=== PATIENT | male | born 1945 | race African-American/Black ===

== ENCOUNTER → 2016-08-03 | Outpatient (CLI) | payer OTHER, BC ==
[~2016-08-03] MED LIST: ACETAMINOPHEN325 M1 PO; ALDACTONE25 MG PO; ASPIR 8181 MG PO; ASPIRIN EC325 M1 PO; ATORVASTATIN CA40 MG PO; CARVEDILOL3.125 MG PO; CARVEDILOL6.25 MG PO; CENTRUM SILVER1 EAC2 PO; COQ-10100 MG PO; COZAAR 25 MG TA25 M2 PO; EFFIENT10 MG PO; GLUCOPHAGE XR500 MG PO; GLUCOPHAGE500 MG PO; IMDUR 30 MG TAB30 M1 PO; ISOSORBIDE MONO30 M1 PO; K-DUR 20 MEQ T20 MEQ PO; KLOR-CON 1010 MEQ PO; LASIX 40 MG TAB40 M1 PO; LOPRESSOR 50 MG50 M1 PO; MEXILETINE 150150 MG PO; NITROGLYCERIN0.4 MG SUBLING; OMEPRAZOLE 20 M20 M1 PO; PACERONE 200 M200 M1 PO; PANTOPRAZOLE SO40 M1 PO; PRILOSEC20 MG PO; TAMSULOSIN HCL0.4 M1 PO; TOPROL XL50 MG PO; TRAMADOL 50 MG50 MG PO
== END ==
LOC: RAD 14:36
DX: I48.91 Unspecified atrial fibrillation (principal)

== ENCOUNTER → 2018-02-08 | Outpatient (CLI) | payer OTHER, BC ==
[2018-02-08 13:29] LABS: ALBUMIN 4.4 g/dL (3.4-5.0); DIRECT BILIRUBIN 0.2 mg/dL (<0.1-0.3); TOTAL BILIRUBIN 0.9 mg/dL (<0.1-1.0); TOTAL PROTEIN 8.5 g/dL (6.4-8.2)
== END ==
LOC: RAD 12:25
PROVIDERS: Internal Medicine
DX: I51.7 Cardiomegaly (principal); Z79.899 Other long term (current) drug therapy

== ENCOUNTER → 2018-05-27 | Outpatient (CLI) | payer OTHER, BC | LOC: RAD 12:13 | DX: R05 Cough (principal); Z79.899 Other long term (current) drug therapy ==

== ENCOUNTER 2018-08-17 15:05 | Emergency (ER) | payer OTHER, BC ==
[~2018-08-17] VITALS: Ht 172.7 cm; Wt 102.5 kg
[2018-08-17 16:37] LABS: HEMATOCRIT 38.9 % (42.0-52.0); HEMOGLOBIN 13.2 gm/dL (14.0-18.0); MCH 29.2 pg (26.0-34.0); MCHC 34.1 g/dL (28.0-37.0); MCV 85.5 fL (80.0-100.0); PLATELET COUNT 192 thou/uL (150-400); RBC 4.54 mil/uL (4.50-6.00); WBC 9.7 thou/uL (4.0-11.0)
[2018-08-17 16:51] LABS: ANION GAP 10 mmol/L (7-16); BUN 43 mg/dL (7-18); CALCIUM 10.6 mg/dL (8.5-10.1); CHLORIDE 95 mmol/L (98-107); CO2 35 mmol/L (21-32); CREATININE 1.9 mg/dL (0.7-1.3); GLUCOSE 145 mg/dL (74-106); POTASSIUM 3.7 mmol/L (3.5-5.1); SODIUM 140 mmol/L (136-145)
[2018-08-17 16:59] LABS: TROPONIN-I <0.06 ng/mL (<0.06)
[2018-08-17 17:01] LABS: ABSOLUTE NEUTROPHILS 6.7 thou/uL (1.4-8.2)
[2018-08-17 17:02] LABS: ANISOCYTOSIS 2+; POLYCHROMASIA OCCASIONAL
[2018-08-17 17:34] LABS: ALBUMIN 4.3 g/dL (3.4-5.0); DIRECT BILIRUBIN 0.2 mg/dL (<0.1-0.3); TOTAL BILIRUBIN 0.8 mg/dL (<0.1-1.0); TOTAL PROTEIN 7.9 g/dL (6.4-8.2)
[2018-08-17 18:18] VITALS: BP 118/69
--- NOTE | 2018-08-18 07:16 | EKG ---
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: : 1945 Requested By: Oleg Bruce Order Number: [id number] MD: Francisco J Wade Measurements Intervals [place] Rate: 67 P: 43 WY: 218 QRS: -34 QRSD: 112 T: 56 QT: 547 QTc: 578 Interpretive Statements Sinus rhythm Borderline prolonged [place] interval Poor R wave progression Inferior myocardial infarction, indeterminate age Prolonged QT interval Compared to ECG 05/29/2014 20:32:05 Inferior Q waves are now present Atrial-paced complex(es) or rhythm no longer present nonspecific change in the ST and T-wave segments Electronically Signed On 08-18-2018 7:16:41 CDT by Francisco J Wade [email or web address] ��������������������������������������������� <ELECTRONICALLY SIGNED> ���������������������������������������� By: Francisco J Wade MD, [facility] ��������������������������������������������� 08/18/18 0716 1603 1603 Francisco J Wade MD, [facility] /EPI
== END 2018-08-17 20:10 | disposition home or self-care (01) ==
LOC: ER 15:05
PROVIDERS: Emergency Medicine
DX: M25.511 Pain in right shoulder (principal); E11.9 Type 2 diabetes mellitus without complications; I25.10 Atherosclerotic heart disease of native coronary artery without angina pectoris; I11.0 Hypertensive heart disease with heart failure; I50.9 Heart failure, unspecified; E78.00 Pure hypercholesterolemia, unspecified

== ENCOUNTER → 2019-02-13 | Outpatient (CLI) | payer OTHER, BC | LOC: RAD 15:03 | DX: Z79.899 Other long term (current) drug therapy (principal) ==

== ENCOUNTER → 2019-08-21 | Outpatient (CLI) | payer OTHER, BC | LOC: RAD 15:51 | DX: I50.22 Chronic systolic (congestive) heart failure (principal) ==

== ENCOUNTER → 2019-12-27 | Outpatient (CLI) | payer OTHER, BC ==
[~2019-12-27] MED LIST changes: +ALLEGRA ALLERG180 MG PO; +ALLOPURINOL 10100 M1 PO; -ATORVASTATIN CA40 MG PO; +CARVEDILOL12.5 MG PO; -CARVEDILOL6.25 MG PO; +FLOVENT HFA 4444 MCG INH; +LIPITOR40 MG PO; +METOLAZONE 2.52.5 MG PO; +TRICOR48 MG PO
== END ==
LOC: SJCVC 13:34
PROVIDERS: ATTEND Internal Medicine Cardiovascular Disease
DX: R94.31 Abnormal electrocardiogram [ECG] [EKG] (principal); I25.5 Ischemic cardiomyopathy; I25.10 Atherosclerotic heart disease of native coronary artery without angina pectoris; E78.5 Hyperlipidemia, unspecified; I11.0 Hypertensive heart disease with heart failure; I50.22 Chronic systolic (congestive) heart failure; I25.2 Old myocardial infarction; Z82.49 Family history of ischemic heart disease and other diseases of the circulatory system; Z79.899 Other long term (current) drug therapy

== ENCOUNTER → 2020-02-26 | Outpatient (CLI) | payer OTHER, BC | LOC: RAD 13:49 | PROVIDERS: ATTEND Internal Medicine Cardiovascular Disease | DX: J98.4 Other disorders of lung (principal); Z79.899 Other long term (current) drug therapy ==

== ENCOUNTER → 2020-09-26 | Outpatient (CLI) | payer OTHER, BC ==
[~2020-09-26] MED LIST changes: +COENZYME Q10100 M2 PO; +MITIGARE0.6 MG PO; +PRILOSEC OTC20 MG PO; -PRILOSEC20 MG PO
== END ==
LOC: RAD 15:15
PROVIDERS: ATTEND Internal Medicine Cardiovascular Disease
DX: I25.5 Ischemic cardiomyopathy (principal); Z79.899 Other long term (current) drug therapy; I10 Essential (primary) hypertension

== ENCOUNTER 2020-11-08 21:16 | Inpatient (IN) | payer OTHER, BC ==
[~2020-11-08] VITALS: Ht 172.7 cm; Wt 118.8 kg
[2020-11-08 21:19] VITALS: BP 111/79
[2020-11-08 22:12] LABS: ABSOLUTE NEUTROPHILS 3.1 thou/uL (1.4-8.2); BASOPHILS 1.5 % (0.0-2.0); EOSINOPHILS 4.9 % (0.0-3.0); HEMATOCRIT 43.1 % (42.0-52.0); HEMOGLOBIN 14.2 gm/dL (14.0-18.0); LYMPHOCYTES 27.7 % (24.0-44.0); MCH 26.9 pg (26.0-34.0); MCV 81.5 fL (80.0-100.0); MONOCYTES 11.9 % (1.0-8.0); PLATELET COUNT 267 thou/uL (150-400); RBC 5.29 mil/uL (4.50-6.00); RDW 15.7 % (10.5-14.5); WBC 5.8 thou/uL (4.0-11.0)
[2020-11-08 22:14] LABS: ANION GAP 8 mmol/L (7-16); BUN 22 mg/dL (7-18); CALCIUM 10.2 mg/dL (8.5-10.1); CHLORIDE 104 mmol/L (98-107); CO2 25 mmol/L (21-32); CREATININE 2.3 mg/dL (0.7-1.3); GLUCOSE 211 mg/dL (74-106); POTASSIUM 4.7 mmol/L (3.5-5.1); SODIUM 137 mmol/L (136-145)
[2020-11-08 22:24] LABS: SGOT 31 U/L (15-37); SGPT 50 U/L (16-63); TOTAL BILIRUBIN 0.9 mg/dL (0.2-1.0); TOTAL PROTEIN 7.7 g/dL (6.4-8.2); TROPONIN-I <0.06 ng/mL (<0.06)
--- NOTE | 2020-11-09 10:50 | EKG ---
[address] [place] [address] ELECTROCARDIOGRAM REPORT Name: DORENENICOLAOMARI PENG Room #: 170-6 ADM IN M.R.#: [id number] Admission: 11/09/20 Attend Phys: Derrick Diaz MD Discharge: Date of : 41 Report #: [id number] 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: RISHABH : 1945 Requested By: Mandy Childs Order Number: [id number] MD: Francisco J Wade Measurements Intervals [place] Rate: 90 P: 78 [place]: 202 QRS: -12 QRSD: 203 T: 195 QT: 436 QTc: 534 Interpretive Statements Sinus rhythm Ventricular premature complex IVCD, consider atypical LBBB Compared to ECG 08/17/2018 16:03:45 Ventricular premature complex(es) now present Left bundle branch block is now present Electronically Signed On 11-09-2020 10:50:43 CDT by Francisco J Wade [email or web address] <ELECTRONICALLY SIGNED> By: Francisco J Wade MD, [facility] 11/09/20 1050 22 22 Francisco J Wade MD, [facility] /EPI
[2020-11-09 12:48] LABS: CALCIUM 9.9 mg/dL (8.5-10.1); TROPONIN-I 0.12 ng/mL (<0.06)
[2020-11-09] MEDS ORDERED: CARAFATE 1 GM TA1 GM PO (15:30)
[2020-11-09 16:01] VITALS: BP 117/66
[2020-11-09 16:12] VITALS: BP 116/74
== END 2020-11-09 16:12 | disposition home or self-care (01) | DRG 392 ==
LOC: ER 21:16 → EROBS 11-09 01:22
PROVIDERS: Emergency Medicine; Nurse Practitioner Family; ADMIT Internal Medicine; ATTEND Internal Medicine
DX: K21.9 Gastro-esophageal reflux disease without esophagitis (principal); I13.0 Hypertensive heart and chronic kidney disease with heart failure and stage 1 through stage 4 chronic kidney disease, or unspecified chronic kidney disease; N17.9 Acute kidney failure, unspecified; I42.9 Cardiomyopathy, unspecified; I25.10 Atherosclerotic heart disease of native coronary artery without angina pectoris; E78.00 Pure hypercholesterolemia, unspecified; E78.5 Hyperlipidemia, unspecified; E11.22 Type 2 diabetes mellitus with diabetic chronic kidney disease; N18.30 Chronic kidney disease, stage 3 unspecified; I50.9 Heart failure, unspecified; Z95.810 Presence of automatic (implantable) cardiac defibrillator; Z79.82 Long term (current) use of aspirin; Z79.899 Other long term (current) drug therapy; I25.2 Old myocardial infarction; Z95.5 Presence of coronary angioplasty implant and graft

== ENCOUNTER 2020-11-12 14:28 | Inpatient (IN) | payer OTHER, BC ==
[~2020-11-12] VITALS: Ht 172.7 cm; Wt 98.9 kg
[~2020-11-12 14:28] MED LIST changes: +CARAFATE 1 GM TA1 GM PO
[2020-11-12 14:33] VITALS: BP 189/97
[2020-11-12 14:57] LABS: ABSOLUTE NEUTROPHILS 5.5 thou/uL (1.4-8.2); BASOPHILS 0.9 % (0.0-2.0); HEMOGLOBIN 13.7 gm/dL (14.0-18.0); LYMPHOCYTES 19.9 % (24.0-44.0); MCH 26.9 pg (26.0-34.0); MCHC 33.4 g/dL (28.0-37.0); MCV 80.6 fL (80.0-100.0); MONOCYTES 14.4 % (1.0-8.0); PLATELET COUNT 205 thou/uL (150-400); POLYS 63.8 % (36.0-66.0); RBC 5.09 mil/uL (4.50-6.00); RDW 15.9 % (10.5-14.5); WBC 8.7 thou/uL (4.0-11.0)
[2020-11-12 15:06] LABS: CALCIUM 10.2 mg/dL (8.5-10.1); CREATININE 2.6 mg/dL (0.7-1.3); POTASSIUM 5.2 mmol/L (3.5-5.1)
[2020-11-12 15:17] LABS: TOTAL BILIRUBIN 1.6 mg/dL (0.2-1.0); TOTAL PROTEIN 7.6 g/dL (6.4-8.2); TROPONIN-I 0.07 ng/mL (<0.06)
[2020-11-13 06:48] VITALS: BP 103/67
[2020-11-13 06:59] LABS: HEMATOCRIT 40.3 % (42.0-52.0); HEMOGLOBIN 13.1 gm/dL (14.0-18.0); MCH 26.6 pg (26.0-34.0); MCHC 32.5 g/dL (28.0-37.0); MCV 81.8 fL (80.0-100.0); RBC 4.92 mil/uL (4.50-6.00); RDW 16.4 % (10.5-14.5); WBC 6.7 thou/uL (4.0-11.0)
--- NOTE | 2020-11-13 07:15 | EKG ---
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: JERAMIE : 1945 Requested By: Timur Hughes Order Number: [id number] MD: Ambrocio Diaz Measurements Intervals [place] Rate: 79 P: 61 [place]: 206 QRS: -2 QRSD: 207 T: 194 QT: 452 QTc: 519 Interpretive Statements Sinus rhythm IVCD, consider atypical LBBB Compared to ECG 11/08/2020 21:23:17 Ventricular premature complex(es) no longer present Electronically Signed On 11-13-2020 7:15:37 CDT by Ambrocio Diaz [email or web address] <ELECTRONICALLY SIGNED> By: Ambrocio Diaz MD, [facility] 11/13/20 0715 1449 1449 Ambrocio Diaz MD, FACC /EPI
[2020-11-13 07:42] LABS: ALBUMIN 3.4 g/dL (3.4-5.0); CALCIUM 9.4 mg/dL (8.5-10.1); CREATININE 2.2 mg/dL (0.7-1.3); MAGNESIUM 1.8 mg/dL (1.8-2.4); TOTAL BILIRUBIN 1.6 mg/dL (0.2-1.0); TOTAL PROTEIN 6.7 g/dL (6.4-8.2)
[2020-11-13 07:46] LABS: POTASSIUM 4.5 mmol/L (3.5-5.1)
[2020-11-13 08:00] VITALS: BP 109/68
[2020-11-13 08:23] LABS: INR 1.3; PROTIME 13.8 Seconds (9.3-11.4)
[2020-11-13 12:00] VITALS: BP 109/74
[2020-11-13 16:43] VITALS: BP 99/72
--- NOTE | 2020-11-13 17:53 | NUR ---
Chart reviewed and case discussed with the care team. Pt recently here and had cardiac stress test. He discharged home on 11/09/20 with outpt followup. Readmitted with acute minna and plans for lap surgery noted for tomorrow. Pt up with sba. PT/OT evals on hold til after surgery. The pt lives at home with his and was indep prior to admission. His pcp is Dr. Oleg Lux. No dc needs anticipated at this time. Will follow along should should dc needs arise.
[2020-11-13 18:00] VITALS: BP 105/65
[2020-11-13 20:15] VITALS: BP 102/74; BP 141/109
--- NOTE | 2020-11-13 20:41 | NUR ---
RECEIVED THE PATIENT CONSCIOUS AND ORIENTED.ON ROOM AIR BREATHING SPONTANEOUSLY.NOT IN PAIN OR DISTRESS.ADMISSION COMPLETED.ALL NEEDS ATTENDED.
[2020-11-14] VITALS (10 sets, daily range): BP systolic 88–123; BP diastolic 38–81
--- NOTE | 2020-11-14 07:55 | EKG ---
[place] [address] [employer] [facility] [place] [address] ELECTROCARDIOGRAM REPORT Name: NICOLA CATHERINE Room #: 219-P ADM IN M.R.#: [id number] Admission: 11/12/20 Attend Phys: Derrick Diaz MD Discharge: Date of : 41 Report #: [id number] [facility] Test Date: 2020-11-14 Test Time: 07:19:27 Pat Name: NICOLA CATHERINE Department: Room: 219 P Gender: M Legislative Assistant: MARJORIE : 1945 Requested By: Francisco J Wade Order Number: [id number] MD: Francisco J Wade Measurements Intervals [place] Rate: 74 P: 56 [place]: 197 QRS: 5 QRSD: 209 T: 230 QT: 467 QTc: 519 Interpretive Statements Sinus rhythm IVCD, consider atypical LBBB Compared to ECG 11/12/2020 14:49:11 No significant changes Electronically Signed On 11-14-2020 7:54:58 CDT by Francisco J Wade [email or web address] <ELECTRONICALLY SIGNED> By: Francisco J Wade MD, [facility] 11/14/20 0754 0719 8 Francisco J Wade MD, FACC /EPI
[2020-11-14 09:29] LABS: CALCIUM 9.5 mg/dL (8.5-10.1); CREATININE 2.3 mg/dL (0.7-1.3); POTASSIUM 4.1 mmol/L (3.5-5.1)
[2020-11-14 09:32] LABS: ALBUMIN 3.5 g/dL (3.4-5.0); PHOSPHORUS 3.4 mg/dL (2.6-4.7)
--- NOTE | 2020-11-14 11:02 | NUR ---
PT TAKEN DOWN FOR SURGERY.
[2020-11-15] VITALS (8 sets, daily range): BP systolic 73–120; BP diastolic 49–79
--- NOTE | 2020-11-15 08:18 | NUR ---
SLEPT MOST OF SHIFT. UP AT BEDSIDE POST OF LAP JOSE DE JESUS TO VOID WITH STEADY GAIT. DENIES COMPLAINTS OF POST OP PAIN IN ABDOMAN. WORKING ON GOALS AND PLAN OF CARE FOR NOC. CONTINUE TO ASSES CLOSELY.
[2020-11-15 09:02] LABS: ABSOLUTE NEUTROPHILS 7.2 thou/uL (1.4-8.2); BASOPHILS 0.1 % (0.0-2.0); EOSINOPHILS 0.1 % (0.0-3.0); HEMATOCRIT 40.6 % (42.0-52.0); HEMOGLOBIN 12.6 gm/dL (14.0-18.0); LYMPHOCYTES 9.3 % (24.0-44.0); MCH 26.2 pg (26.0-34.0); MCV 84.7 fL (80.0-100.0); PLATELET COUNT 181 thou/uL (150-400); POLYS 80.5 % (36.0-66.0); RBC 4.79 mil/uL (4.50-6.00); WBC 8.9 thou/uL (4.0-11.0)
[2020-11-15 09:23] LABS: ALBUMIN 3.3 g/dL (3.4-5.0); CALCIUM 9.8 mg/dL (8.5-10.1); CREATININE 2.6 mg/dL (0.7-1.3); MAGNESIUM 2.1 mg/dL (1.8-2.4); POTASSIUM 4.9 mmol/L (3.5-5.1); TOTAL BILIRUBIN 1.4 mg/dL (0.2-1.0); TOTAL PROTEIN 6.3 g/dL (6.4-8.2)
--- NOTE | 2020-11-15 18:01 | NUR ---
Case discussed with the care team. No dc planning needs anticipated. Pt cleared by therapy.
[2020-11-15 18:10] LABS: URINE BILIRUBIN NEGATIVE (Negative); URINE BLOOD 1+ (Negative); URINE CLARITY CLEAR; URINE COLOR YELLOW; URINE GLUCOSE-RANDOM* NEGATIVE (Negative); URINE KETONES NEGATIVE (Negative); URINE LEUKOCYTES-REFLEX NEGATIVE (Negative); URINE PROTEIN (DIPSTICK) NEGATIVE (Negative); URINE SPECIFIC GRAVITY >= 1.030 (1.005-1.035)
[2020-11-15 18:13] LABS: URINE NITRITE-REFLEX POSITIVE (Negative)
--- NOTE | 2020-11-15 18:31 | NUR ---
ASSUMED CARE SHIFT CHANGE. BP LOW THIS SHIFT,BP MEDS HELD. PHYSICIAN NOTIFIED ORDERS RECEIVED. FLUID BOLUSX2 MINIMAL IMPROVEMENT, UOP INADEQUATE, WILSON PLACED PER ORDERS. CONT FLUIDS PER ORDERS. SPOUSE AT BEDSIDE UPDATED ON POC. PT NOT PROGRESSING TOWARD GOALS. WILL CONT POC. WILL PASS REPORT TO NOC RN.
[2020-11-15 18:33] LABS: SQUAMOUS 0-3 Few /LPF (0-3)
[2020-11-15 18:34] LABS: HYALINE CASTS 4-10 Moderate /LPF (None Seen)
[2020-11-15 18:35] LABS: URINE RBC 3-10 Few /HPF (NONE SEEN); URINE WBC-REFLEX 0-5 Rare /HPF (0-5)
[2020-11-15 18:36] LABS: CRYSTALS None Seen /LPF (None Seen)
[2020-11-15 18:45] LABS: ABSOLUTE NEUTROPHILS 12.2 thou/uL (1.4-8.2); BASOPHILS 0.2 % (0.0-2.0); HEMATOCRIT 42.7 % (42.0-52.0); HEMOGLOBIN 13.5 gm/dL (14.0-18.0); LYMPHOCYTES 8.2 % (24.0-44.0); MCH 26.6 pg (26.0-34.0); MCHC 31.7 g/dL (28.0-37.0); MCV 83.8 fL (80.0-100.0); MONOCYTES 13.1 % (1.0-8.0); PLATELET COUNT 207 thou/uL (150-400); POLYS 78.5 % (36.0-66.0); RBC 5.09 mil/uL (4.50-6.00); RDW 16.5 % (10.5-14.5); WBC 15.6 thou/uL (4.0-11.0)
[2020-11-15 18:52] LABS: CALCIUM 9.6 mg/dL (8.5-10.1); CREATININE 3.1 mg/dL (0.7-1.3); POTASSIUM 5.4 mmol/L (3.5-5.1)
[2020-11-15 19:03] LABS: ALBUMIN 3.2 g/dL (3.4-5.0); MAGNESIUM 2.1 mg/dL (1.8-2.4); TOTAL BILIRUBIN 1.5 mg/dL (0.2-1.0); TOTAL PROTEIN 6.6 g/dL (6.4-8.2); TROPONIN-I 0.07 ng/mL (<0.06)
[2020-11-16] VITALS (31 sets, daily range): BP systolic 85–107; BP diastolic 35–73
--- NOTE | 2020-11-16 00:37 | NUR ---
This RN accepted patient from ETHAN Jensen on CCU. Patient admitted to room 251.
--- NOTE | 2020-11-16 01:49 | NUR ---
This RN spoke with MANJULA Tian regarding patients poor urinary output and status. No new orders received at this time. Will continue to monitor.
[2020-11-16 04:49] LABS: ABSOLUTE NEUTROPHILS 11.9 thou/uL (1.4-8.2); BASOPHILS 0.3 % (0.0-2.0); HEMATOCRIT 41.5 % (42.0-52.0); HEMOGLOBIN 13.3 gm/dL (14.0-18.0); LYMPHOCYTES 5.9 % (24.0-44.0); MCH 26.6 pg (26.0-34.0); MCHC 32.1 g/dL (28.0-37.0); MCV 82.7 fL (80.0-100.0); MONOCYTES 12.5 % (1.0-8.0); PLATELET COUNT 158 thou/uL (150-400); POLYS 81.3 % (36.0-66.0); RBC 5.02 mil/uL (4.50-6.00); RDW 16.4 % (10.5-14.5); WBC 14.7 thou/uL (4.0-11.0)
[2020-11-16 05:18] LABS: ALBUMIN 3.1 g/dL (3.4-5.0); CREATININE 3.3 mg/dL (0.7-1.3); MAGNESIUM 2.1 mg/dL (1.8-2.4); PHOSPHORUS 4.7 mg/dL (2.5-4.9); POTASSIUM 4.9 mmol/L (3.5-5.1); TOTAL PROTEIN 6.4 g/dL (6.4-8.2)
--- NOTE | 2020-11-16 08:45 | NUR ---
PT NOT PROGRESSING TOWARDS DISCHARGE AT THIS TIME, DVT FOUND ON L CALF POST TIBIAL/MID CALF UPON PRELIM REPORT, ORDER GIVEN BY TO START HEP GTT BASED ON PRELIM, FAMILY MEMBER UPDATED AT 0846 REGARDING CURRENT STATUS, PT BEING SEEN BY AT THIS TIME, PICC LINE INSERTION ORDER GIVEN CONSENT OBTAINED FROM , RN TO CONTINUE PROVIDING CARE.
[2020-11-16 09:33] LABS: HEMOGLOBIN 13.1 gm/dL (14.0-18.0); MCH 26.7 pg (26.0-34.0); MCHC 32.1 g/dL (28.0-37.0); MCV 83.1 fL (80.0-100.0); RBC 4.93 mil/uL (4.50-6.00); RDW 16.9 % (10.5-14.5); WBC 13.5 thou/uL (4.0-11.0)
[2020-11-16 09:54] LABS: APTT 26.5 Seconds (24.5-32.8); INR 1.69
[2020-11-17] VITALS (22 sets, daily range): BP systolic 86–116; BP diastolic 54–75
--- NOTE | 2020-11-17 07:00 | NUR ---
Pt remains stable this morning. No event over night. He slept well. Denies of any pain or discomfort. On heparin gtt per protocol. No active bleeding indicates. VSS. Continue progressing toward goals.
[2020-11-17 07:36] LABS: HEMATOCRIT 38.4 % (42.0-52.0); HEMOGLOBIN 12.7 gm/dL (14.0-18.0); MCH 27.2 pg (26.0-34.0); MCV 82.3 fL (80.0-100.0); RBC 4.67 mil/uL (4.50-6.00); RDW 16.8 % (10.5-14.5); WBC 10.6 thou/uL (4.0-11.0)
[2020-11-17 07:40] LABS: CALCIUM 8.8 mg/dL (8.5-10.1); POTASSIUM 4.2 mmol/L (3.5-5.1)
[2020-11-17 07:53] LABS: CREATININE 2.3 mg/dL (0.7-1.3)
--- NOTE | 2020-11-17 12:24 | NUR ---
RN SPOKE WITH PT'S ENEDELIA ON PHONE. WAS GIVEN PT UPDATE. ASKED FOR CALL BACK IF PT IS TRANSFERRED OUT OF ICU, OTHERWISE PT'S STATES SHE WILL CALL AND CHECK ON HIM LATER TODAY.
--- NOTE | 2020-11-17 16:47 | NUR ---
DR CHRISTINE ON ROUNDS STATES TO GET PT OUT OF BED AND INTO CHAIR. WATCH FOR SOB OR S/S OF CHF. RN GOT PT UP TO CHAIR. PT DID NOT HAVE AN DIFFICULTIES. PT STATES HE DID FEEL SLIGHTLY SOB, PO2 REMAINED GREATER THAN 97% ON ROOM AIR.
[2020-11-18 07:41] LABS: ALBUMIN 2.9 g/dL (3.4-5.0); CALCIUM 8.9 mg/dL (8.5-10.1); POTASSIUM 3.9 mmol/L (3.5-5.1); TOTAL BILIRUBIN 1.2 mg/dL (0.2-1.0)
--- NOTE | 2020-11-18 07:57 | NUR ---
Pt TRANSFERRED TO ICU OVER THE WEEKEND. WILL PLACE ON HOLD AND AWAIT NEW ORDERS TO RESUME WHEN APPROPRIATE
--- NOTE | 2020-11-18 11:47 | NUR ---
Chart review. Discussed during los with hospitalist, dc home today, possible. Cardiology consulted. Passed on information to bedside nurse. Will cont following as needed for dc needs.
[2020-11-18 18:00] VITALS: BP 94/64
--- NOTE | 2020-11-18 18:21 | NUR ---
PT IS PROGRESSING TOWARDS DISCHARGE AT THIS TIME, SEEN BY WORM RAISER, COREG ORDERED, APIXABAN STARTED HEPARIN GTT STOPPED. DISCHARGE ORDERS ARE PENDING, CATHETER REMOVED, 33CC URINE RESIDUAL NOTED S/P CATHETER REMOVAL. ALL PULSES ARE PALPABLE, NO ACUTE CHANGES IN PT THIS SHIFT. RN SIGNING OF
[2020-11-18 19:00] VITALS: BP 86/62
[2020-11-18 20:01] VITALS: BP 96/69
[2020-11-18 21:00] VITALS: BP 95/69
[2020-11-18 22:00] VITALS: BP 101/74
[2020-11-18 23:00] VITALS: BP 109/72
[2020-11-19] VITALS (17 sets, daily range): BP systolic 98–115; BP diastolic 57–76
[2020-11-19 04:46] LABS: HEMATOCRIT 38.6 % (42.0-52.0); HEMOGLOBIN 12.6 gm/dL (14.0-18.0); MCH 26.6 pg (26.0-34.0); MCHC 32.6 g/dL (28.0-37.0); MCV 81.6 fL (80.0-100.0); RBC 4.72 mil/uL (4.50-6.00); RDW 16.7 % (10.5-14.5); WBC 9.5 thou/uL (4.0-11.0)
[2020-11-19 05:14] LABS: ALBUMIN 2.8 g/dL (3.4-5.0); CALCIUM 8.9 mg/dL (8.5-10.1); CREATININE 1.6 mg/dL (0.7-1.3); POTASSIUM 4.5 mmol/L (3.5-5.1); TOTAL BILIRUBIN 0.9 mg/dL (0.2-1.0); TOTAL PROTEIN 6.1 g/dL (6.4-8.2)
--- NOTE | 2020-11-19 08:00 | NUR ---
Assessment completed. Monitor shows SA, afrebile.denies any discomfort. rt arm and rt leg swollen. vss
[2020-11-19] MEDS ORDERED: COREG6.25 MG PO (11:00)
[2020-11-19] MEDS ORDERED: ELIQUIS5 MG PO (11:00)
--- NOTE | 2020-11-19 15:01 | NUR ---
Discussed during los and unite rounds. Dc home today, no needs.
--- NOTE | 2020-11-19 15:08 | PATH ---
[facility] [address] [place] [address] PATHOLOGY RPT PROCEDURE Name: NICOLA CATHERINE Room #: 251-P [facility] IN M.R.#: [id number] Admission: 11/12/20 Date of : 41 Discharge: Report #: [id number] Path Case #: [id number] [facility] Accession Number: [id number] . 01 Material submitted: . gallbladder - GALLBLADDER . 01 Clinical history: . LAPAROSCOPIC CHOLECYSTECTOMY CHOLETHIASIS AND CHOLECYSTITIS . 02 Diagnosis: Gallbladder, cholecystectomy: - Mild chronic cholecystitis. - Cholelithiasis. . (IUV:mml; 11/19/2020) [facility] 11/19/2020 1054 Local . 02 Electronically signed: . Alyssa Medley MD, Pathologist NPI- [id number] . 01 Gross description: . Fixative: Formalin Labeled: Gallbladder Specimen received: Previously opened gallbladder Dimensions: 8.0 x 3.3 x 0.9 cm Serosa: Light smith and adipose covered Lymph node: None identified Mucosa: Velvety and bile-stained Average wall thickness: 0.1 cm Calculi: Present, black, irregular, and friable Abnormalities: None identified . A1- Pot Annealer body, fundus, and the cystic duct margin. ([facility]; 11/15/2020) [facility] 11/15/2020 1631 Local . 02 Pathologist provided ICD-10: K80.10 . 02 CPT . [id number] Specimen Comment: A courtesy copy of this report has been sent to [phone], [phone] Specimen Comment: [phone], [address] [address] PATHOLOGY RPT PROCEDURE Name: NICOLA CATHERINE Room #: 251-P [facility] IN .R.#: [id number] Admission: 11/12/20 Date of : 41 Discharge: Report #: [id number] Path Case #: [id number] Specimen Comment: Report sent to , DR BABCOCK / DR MARIA Performed at: 01 [facility] [address], [place] [id number] MD Joseph Turner MD Phone: [phone] Performed at: [address] [id number] MD Alyssa Medley MD Phone: [phone]
--- NOTE | 2020-11-19 15:30 | NUR ---
rt jugular central line removed and pressure held. small pressure dressing applied. vss. pt denies discomfort.
--- NOTE | 2020-11-19 17:07 | NUR ---
pt's here and instructions for home given. all discharge paperwork signed and given to the pt. Pt's informed if she has any problems to call the ED or call her attending. Rx given to them also. Pt placed in a w/c and taken out to his car. Verbalizes understanding of everything.
== END 2020-11-19 17:50 | disposition home or self-care (01) | DRG 417 ==
LOC: ER 14:28 → 2N 17:55 → EROBS 17:55 → 2N 11-13 06:45 → ICU 11-15 23:59
PROVIDERS: Emergency Medicine; Internal Medicine; Internal Medicine Nephrology; Nurse Practitioner Family; Surgery; ADMIT Internal Medicine; ATTEND Internal Medicine
DX: K80.00 Calculus of gallbladder with acute cholecystitis without obstruction (principal); K72.00 Acute and subacute hepatic failure without coma; N17.0 Acute kidney failure with tubular necrosis; I50.22 Chronic systolic (congestive) heart failure; I13.0 Hypertensive heart and chronic kidney disease with heart failure and stage 1 through stage 4 chronic kidney disease, or unspecified chronic kidney disease; I82.611 Acute embolism and thrombosis of superficial veins of right upper extremity; I82.621 Acute embolism and thrombosis of deep veins of right upper extremity; I25.5 Ischemic cardiomyopathy; I25.10 Atherosclerotic heart disease of native coronary artery without angina pectoris; R74.01 Elevation of levels of liver transaminase levels; E78.00 Pure hypercholesterolemia, unspecified; E11.22 Type 2 diabetes mellitus with diabetic chronic kidney disease; K21.9 Gastro-esophageal reflux disease without esophagitis; Z20.822 Contact with and (suspected) exposure to COVID-19; K59.00 Constipation, unspecified; E78.5 Hyperlipidemia, unspecified; N18.32 Chronic kidney disease, stage 3b; K63.5 Polyp of colon; I34.0 Nonrheumatic mitral (valve) insufficiency; I95.81 Postprocedural hypotension; Z95.810 Presence of automatic (implantable) cardiac defibrillator; I25.2 Old myocardial infarction; Z95.5 Presence of coronary angioplasty implant and graft
CPT/HCPCS: 10078; 10081; 10203; 50010; 50101; 50411; 50555; 50558; 51489; 52265; 52266; 53307; 53312; 53358; 54022; 54118; 55245; 56462; 56525; 56526; 56674; 58574; 62110; 62900; 70005

== ENCOUNTER 2020-11-22 17:25 | Inpatient (IN) | payer OTHER, BC ==
[2020-11-22] VITALS (10 sets, daily range): BP systolic 80–115; BP diastolic 48–60
[~2020-11-22] VITALS: Ht 182.9 cm; Wt 116.5 kg
--- NOTE | ~2020-11-22 | EMS ---
[address] [address] EMS Patient Care Report Name: NICOLA CATHERINE [id number] Admission: 11/22/20 Attend Phys: Discharge: Date of : 41 Report #: [id number] THIS REPORT FOR: //name// Report Transmitted: 11/22/2020 18:09 EMS Care Summary [place], [place]/[facility] Incident [id number] @ 11/22/2020 16:45 Incident Location [address] [place], [place] [id number] Patient NICOLA CATHERINE Male, 75 Years 1945 Patient Address Patient History Congestive Heart Failure (CHF),Pacemaker/AICD,Cardiac - Stent,Myocardial Infarction ([place]), Patient Allergies No known allergies, Patient Medications Atorvastatin, Fenofibrate, Nitroglycerin, Aspirin, Fexofenadine, Carvedilol, Lasix, Chief Complaint SHORTNESS OF BREATH Disposition Transported No Lights/[place], Upgraded Dispatch Reason Breathing Problem Transported To [facility] Narrative M36 dispatched on a breathing problems. M36 arrived to find P33 walking PT to stretcher with PT wearing NRB at rate of 15 Lpm oxygen. PT stated shortness of breath as chief complaint. PT stated breathing problems started one hour prior to contacting EMS. PT stated history of [place], cardiac stents, CHF and [address] [address] EMS Patient Care Report Name: NICOLA CATHERINE Room #: REG [facility].#: [id number] Admission: 11/22/20 Attend Phys: Discharge: Date of : 41 Report #: [id number] recent laparoscopic surgery. PT sat on stretcher. PT secured with seatbelts. PT spoke in 1 or 2 word sentences. PT denied allergies. PT placed on CPAP. PT SPO2 improved. IV access obtained and 12 lead obtained during transport. PT denied any physical pain. PT rated difficulty breathing 10/10. PT denied ever feeling like this before. PT vitals monitored in route. PT report given. PT removed from EMS monitor in ED. PT moved to hospital bed by four person sheet lift. PT care and belongings transferred to ER staff at [facility]. PT signature not obtained because PT went into cardiac arrest in ER. M36 placed back in service. Initial Vitals @17:23P: 136,R: 18,Pain: 0/10,SpO2: 100, @17:16P: 70,R: 20,Pain: 0/10,GCS: 15,Glucose: 104,SpO2: 100,Revised Trauma: 12,[place] Suspected: true @17:03P: 88,R: 24,Pain: 0/10,GCS: 15,SpO2: 83,Revised Trauma: 12, @17:21P: 98,R: 22,Pain: 0/10,GCS: 15,SpO2: 100,Revised Trauma: 12,[place] Suspected: true @17:12P: 80,R: 22,BP: 144/88,Pain: 0/10,GCS: 15,SpO2: 100,Revised Trauma: 12, @17:21P: 100,R: 22,BP: 92/62,Pain: 0/10,GCS: 15,SpO2: 99,Revised Trauma: 12, Assessments @16:56MENTAL:Time Oriented,Event Oriented,Place Oriented,Person Oriented,SKIN:Pale,HEENT:Neck/Airway: JVD,LUNG SOUNDS:ABDOMEN:PELVIS//GI:EXTREMITIES:Right Leg: Other,PULSE:Radial: 2+ Normal,NEURO:@17:28MENTAL:Place Oriented,Event Oriented,Time Oriented,Person Oriented,SKIN:Pale,HEENT:Head/Face: Drainage,Neck/Airway: JVD,LUNG SOUNDS:ABDOMEN:PELVIS//GI:EXTREMITIES:PULSE:Radial: 2+ Normal,NEURO: Impression Acute Respiratory Distress (Dyspnea) Procedures @17:2112-Lead ECGResponse: UnchangedSucceeded@17:1612-Lead ECGResponse: UnchangedSucceeded@16:56ALS AssessmentResponse: UnchangedSucceeded@17:11Saline Lock 15cc (20 ga) Site: Forearm-LeftResponse: UnchangedSucceeded@17:033-Lead ECGResponse: UnchangedSucceeded@PTAOxygen FlowRate: 15 Device: Non Re-breather Mask (NRB) Response: UnchangedSucceeded@17:09CPAP FlowRate: 10 Response: ImprovedSucceeded 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,Oxygen FlowRate: 15 Device: Non Re-breather Mask (NRB) Response: UnchangedSucceeded, 16:44,Call Received 16:44,Dispatch Notified 16:45,Dispatched [address] [address] EMS Patient Care Report Name: NICOLA CATHERINE Room #: REG M.R.#: [id number] Admission: 11/22/20 Attend Phys: Discharge: Date of : 41 Report #: [id number] 16:46,En Route 16:54,On Scene 16:55,At Patient 16:56,ALS Assessment,Response: UnchangedSucceeded, 17:03,BP: 90/ M,PULSE: 88,RR: 24 R,SPO2: 83 Ox,ETCO2: ,BG: ,PAIN: 0,GCS: 15, 17:03,3-Lead ECG,Response: UnchangedSucceeded, 17:09,CPAP FlowRate: 10 Response: ImprovedSucceeded, 17:11,Saline Lock 15cc 20 ga Site: Forearm-Left,Response: UnchangedSucceeded, 17:12,Depart Scene 17:12,BP: 144/88 M,PULSE: 80,RR: 22 R,SPO2: 100 Ox,ETCO2: ,BG: ,PAIN: 0,GCS: 15, 17:16,12-Lead ECG,Response: UnchangedSucceeded, 17:16,BP: 90/ M,PULSE: 70,RR: 20 R,SPO2: 100 Ox,ETCO2: ,B,PAIN: 0,GCS: 15, 17:21,12-Lead ECG,Response: UnchangedSucceeded, 17:21,BP: 90/ M,PULSE: 98,RR: 22 R,SPO2: 100 Ox,ETCO2: ,BG: ,PAIN: 0,GCS: 15, 17:21,BP: 92/62 M,PULSE: 100,RR: 22 R,SPO2: 99 Ox,ETCO2: ,BG: ,PAIN: 0,GCS: 15, 17:23,BP: / M,PULSE: 136,RR: 18 R,SPO2: 100 Ox,ETCO2: ,BG: ,PAIN: 0,GCS: , 17:30,At Destination 17:58,Call Closed Disclaimer v1.1 Copyright 2020 [employer] This EMS Care Summary contains data elements from the applicable legal record (which may be displayed differently). It is designed to provide pertinent information for the following purposes: continuity of care, clinical quality, and state data reporting. The complete legal record is available to ED staff and administrators of the receiving hospital in [employer]'s Patient Tracker. All data is provided "as is."
--- NOTE | ~2020-11-22 | EMS ---
[address] [address] EMS Patient Care Report Name: NICOLA CATHERINE Room #: 170-10 ADM IN M.R.#: [id number] Admission: 11/22/20 Attend Phys: Keisha Guillermo Discharge: Date of : 41 Report #: [id number] THIS REPORT FOR: //name// Report Transmitted: 11/22/2020 19:09 EMS Care Summary [place], [place]/[facility] Incident [id number] @ 11/22/2020 16:45 Incident Location [address] [place] [id number] Patient NICOLA CATHERINE Male, 75 Years 1945 Patient Address Patient History Congestive Heart Failure (CHF),Pacemaker/AICD,Cardiac - Stent,Myocardial Infarction ([place]), Patient Allergies No known allergies, Patient Medications Atorvastatin, Fenofibrate, Nitroglycerin, Aspirin, Fexofenadine, Carvedilol, Lasix, Chief Complaint SHORTNESS OF BREATH Disposition Transported No Lights/[place], Upgraded Dispatch Reason Breathing Problem Transported To [facility] Narrative M36 dispatched on a breathing problems. M36 arrived to find P33 walking PT to stretcher with PT wearing NRB at rate of 15 Lpm oxygen. PT stated shortness of breath as chief complaint. PT stated breathing problems started one hour prior to contacting EMS. PT stated history of [place], cardiac stents, CHF and [address] [place] [address] EMS Patient Care Report Name: NICOLA CATHERINE Room #: 170- ADM IN M.R.#: [id number] Admission: 11/22/20 Attend Phys: Keisha Guillermo Discharge: Date of : 41 Report #: [id number] recent laparoscopic surgery. PT sat on stretcher. PT secured with seatbelts. PT spoke in 1 or 2 word sentences. PT denied allergies. PT placed on CPAP. PT SPO2 improved. IV access obtained and 12 lead obtained during transport. PT denied any physical pain. PT rated difficulty breathing 10/10. PT denied ever feeling like this before. PT vitals monitored in route. PT report given. PT removed from EMS monitor in ED. PT moved to hospital bed by four person sheet lift. PT care and belongings transferred to ER staff at [facility]. PT signature not obtained because PT went into cardiac arrest in ER. M36 placed back in service. Initial Vitals @17:23P: 136,R: 18,Pain: 0/10,SpO2: 100, @17:16P: 70,R: 20,Pain: 0/10,GCS: 15,Glucose: 104,SpO2: 100,Revised Trauma: 12,[place] Suspected: true @17:03P: 88,R: 24,Pain: 0/10,GCS: 15,SpO2: 83,Revised Trauma: 12, @17:21P: 98,R: 22,Pain: 0/10,GCS: 15,SpO2: 100,Revised Trauma: 12,[place] Suspected: true @17:12P: 80,R: 22,BP: 144/88,Pain: 0/10,GCS: 15,SpO2: 100,Revised Trauma: 12, @17:21P: 100,R: 22,BP: 92/62,Pain: 0/10,GCS: 15,SpO2: 99,Revised Trauma: 12, Assessments @16:56MENTAL:Time Oriented,Event Oriented,Place Oriented,Person Oriented,SKIN:Pale,HEENT:Neck/Airway: JVD,LUNG SOUNDS:ABDOMEN:PELVIS//GI:EXTREMITIES:Right Leg: Other,PULSE:Radial: 2+ Normal,NEURO:@17:28MENTAL:Place Oriented,Event Oriented,Time Oriented,Person Oriented,SKIN:Pale,HEENT:Head/Face: Drainage,Neck/Airway: JVD,LUNG SOUNDS:ABDOMEN:PELVIS//GI:EXTREMITIES:PULSE:Radial: 2+ Normal,NEURO: Impression Acute Respiratory Distress (Dyspnea) Procedures @17:2112-Lead ECGResponse: UnchangedSucceeded@17:1612-Lead ECGResponse: UnchangedSucceeded@16:56ALS AssessmentResponse: UnchangedSucceeded@17:11Saline Lock 15cc (20 ga) Site: Forearm-LeftResponse: UnchangedSucceeded@17:033-Lead ECGResponse: UnchangedSucceeded@PTAOxygen FlowRate: 15 Device: Non Re-breather Mask (NRB) Response: UnchangedSucceeded@17:09CPAP FlowRate: 10 Response: ImprovedSucceeded 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,Oxygen FlowRate: 15 Device: Non Re-breather Mask (NRB) Response: UnchangedSucceeded, 16:44,Call Received 16:44,Dispatch Notified 16:45,Dispatched [address] [address] EMS Patient Care Report Name: NICOLA CATHERINE Room #: 170-10 ADM IN M.R.#: [id number] Admission: 11/22/20 Attend Phys: Keisha Guillermo Discharge: Date of : 41 Report #: [id number] 16:46,En Route 16:54,On Scene 16:55,At Patient 16:56,ALS Assessment,Response: UnchangedSucceeded, 17:03,BP: 90/ M,PULSE: 88,RR: 24 R,SPO2: 83 Ox,ETCO2: ,BG: ,PAIN: 0,GCS: 15, 17:03,3-Lead ECG,Response: UnchangedSucceeded, 17:09,CPAP FlowRate: 10 Response: ImprovedSucceeded, 17:11,Saline Lock 15cc 20 ga Site: Forearm-Left,Response: UnchangedSucceeded, 17:12,Depart Scene 17:12,BP: 144/88 M,PULSE: 80,RR: 22 R,SPO2: 100 Ox,ETCO2: ,BG: ,PAIN: 0,GCS: 15, 17:16,12-Lead ECG,Response: UnchangedSucceeded, 17:16,BP: 90/ M,PULSE: 70,RR: 20 R,SPO2: 100 Ox,ETCO2: ,B,PAIN: 0,GCS: 15, 17:21,12-Lead ECG,Response: UnchangedSucceeded, 17:21,BP: 90/ M,PULSE: 98,RR: 22 R,SPO2: 100 Ox,ETCO2: ,BG: ,PAIN: 0,GCS: 15, 17:21,BP: 92/62 M,PULSE: 100,RR: 22 R,SPO2: 99 Ox,ETCO2: ,BG: ,PAIN: 0,GCS: 15, 17:23,BP: / M,PULSE: 136,RR: 18 R,SPO2: 100 Ox,ETCO2: ,BG: ,PAIN: 0,GCS: , 17:30,At Destination 17:58,Call Closed Disclaimer v1.1 Copyright 2020 [employer] This EMS Care Summary contains data elements from the applicable legal record (which may be displayed differently). It is designed to provide pertinent information for the following purposes: continuity of care, clinical quality, and state data reporting. The complete legal record is available to ED staff and administrators of the receiving hospital in [employer]'s Patient Tracker. All data is provided "as is."
[~2020-11-22 17:25] MED LIST changes: +COREG6.25 MG PO; +ELIQUIS5 MG PO
--- NOTE | 2020-11-22 17:25 | NUR ---
PT PRSENTS TO THE ER VIA WITH COMPLAINTS OF SOB FROM HOME. ONSET SOMETIME TODAY THAT PROGRESSIVELY HAD GOTTEN WORSE. BEFORE WE COULD MOVE PT TO THE ED COT PT BECAME UNRESPONSIVE AND LOST A PULSE. X3 RNS AT BEDSIDE ALONG WITH ED PROVIDER. CPR WAS IMMEDIATELY INITIATED, ACLS MEDS GIVEN PLEASE SEE CODE SHEET FOR EXACT MEDICATIONS AND TIMES GIVEN. PT CODED OFF AND ON FOR ROUGHLY X2 HOURS. PT SPOUSE WAS WITH PT. ED PROVIDER GAVE FULL UPDATE AND CARE PLAN TO PT SPOUSE AND EXPECTATIONS. MEDICATIONS INFUSING ORDERED AND TITRATED PER PT CONDITION. PT HAS NO OBVIOUS WOUNDS OR SKIN ISSUES NOTED. PT HAS MULTIPLE FRESH LAPROSCOPIC INCISIONS TO THE ABDOMEN THAT ARE INTACT AND APPEAR TO BE HEALING WELL. NO OBVIOUS ISSUES TO BACKSIDE NOTED. RECTAL EXAM DEFERRED. PT HAS A 7.0 ETT @23CM AT THE TEETH 16F OG 60CM AT THE TEETH;SECURED TO ETT 16F TEMPERATURE SENSING WILSON 20G IV TO THE LEFT THUMB 20G IV TO THE LEFT EJ TRIPLE LUMEN CENTRAL LINE TO RIGHT JUGULAR MULTIPLE RN'S, PROVIDER AND RT AT BEDSIDE FOR RESUSCITATIVE MEASURES APPROXMIATELY [phone]. REPORT GIVEN TO ETHAN CLARK AT 1950.
[2020-11-22 19:04] LABS: MCH 26.2 pg (26.0-34.0)
[2020-11-22 19:05] LABS: ABSOLUTE NEUTROPHILS 13.2 thou/uL (1.4-8.2); BASOPHILS 0.7 % (0.0-2.0); EOSINOPHILS 0.5 % (0.0-3.0); HEMATOCRIT 38.3 % (42.0-52.0); HEMOGLOBIN 11.4 gm/dL (14.0-18.0); LYMPHOCYTES 11.8 % (24.0-44.0); MCHC 29.9 g/dL (28.0-37.0); MCV 87.7 fL (80.0-100.0); MONOCYTES 6.5 % (1.0-8.0); PLATELET COUNT 243 thou/uL (150-400); POLYS 80.5 % (36.0-66.0); RBC 4.36 mil/uL (4.50-6.00); WBC 16.4 thou/uL (4.0-11.0)
[2020-11-22 19:06] LABS: BE(vivo) -17.7 mmol/L (-2 to +3); HCO3 11.8 mmol/L (22.0-26.0); PCO2 41.3 mmHg (35.0-45.0); PO2 88.5 mmHg (80.0-100.0); sO2 92.8 % (92.0-98.0)
[2020-11-22 19:07] LABS: pH 7.073 (7.360-7.450)
[2020-11-22 19:10] LABS: CALCIUM 9.1 mg/dL (8.5-10.1); CREATININE 3.1 mg/dL (0.7-1.3); TROPONIN-I 0.13 ng/mL (<0.06)
[2020-11-22 19:16] LABS: POTASSIUM 6.7 mmol/L (3.5-5.1)
[2020-11-22 21:06] LABS: HEMATOCRIT 37.9 % (42.0-52.0); HEMOGLOBIN 11.4 gm/dL (14.0-18.0); MCH 26.2 pg (26.0-34.0); MCHC 30.1 g/dL (28.0-37.0); MCV 86.8 fL (80.0-100.0); RBC 4.37 mil/uL (4.50-6.00); RDW 17.8 % (10.5-14.5)
[2020-11-22 21:09] LABS: CALCIUM 9.2 mg/dL (8.5-10.1); CREATININE 3.3 mg/dL (0.7-1.3); POTASSIUM 5.9 mmol/L (3.5-5.1)
[2020-11-22 21:24] LABS: PROTIME 51.8 Seconds (10.5-12.1)
[2020-11-22 21:31] LABS: INR 5.14
[2020-11-22 21:56] LABS: BE(vivo) -17.1 mmol/L (-2 to +3); HCO3 12.1 mmol/L (22.0-26.0); PO2 84.7 mmHg (80.0-100.0); sO2 92.2 % (92.0-98.0)
[2020-11-22 21:57] LABS: pH 7.087 (7.360-7.450)
[2020-11-22 22:46] LABS: CHOLESTEROL 55 mg/dL (<200); HDL CHOLESTEROL 21 mg/dL (>40); LDL CHOLESTEROL 23 mg/dL (<100); MAGNESIUM 2.1 mg/dL (1.8-2.4); TC:HDL 2.6 Ratio (Not establshd); TRIGLYCERIDE 56 mg/dL (<150); VLDL 11 mg/dL (<40)
[2020-11-22 22:49] LABS: SERUM ASSESSMENT Clear
[2020-11-23] VITALS (83 sets, daily range): BP systolic 91–204; BP diastolic 50–109
[2020-11-23 00:30] LABS: BE(vivo) -15.4 mmol/L (-2 to +3); HCO3 13.7 mmol/L (22.0-26.0); PCO2 44.1 mmHg (35.0-45.0); PO2 94.8 mmHg (80.0-100.0); pH 7.109 (7.360-7.450); sO2 94.5 % (92.0-98.0)
[2020-11-23 00:32] LABS: CALCIUM 9.4 mg/dL (8.5-10.1); CREATININE 3.3 mg/dL (0.7-1.3); POTASSIUM 5.9 mmol/L (3.5-5.1)
[2020-11-23 05:28] LABS: HEMATOCRIT 38.6 % (42.0-52.0); HEMOGLOBIN 12.2 gm/dL (14.0-18.0); MCH 26.5 pg (26.0-34.0); MCHC 31.5 g/dL (28.0-37.0); MCV 84.1 fL (80.0-100.0); RBC 4.59 mil/uL (4.50-6.00); RDW 17.1 % (10.5-14.5); WBC 31.4 thou/uL (4.0-11.0)
[2020-11-23 05:41] LABS: CALCIUM 7.4 mg/dL (8.5-10.1)
--- NOTE | 2020-11-23 06:11 | NUR ---
ASSUMED CARE OF PATIENT FROM ER AT 2330. PATIENT ON LEVO, ABDIRAHMAN, AMIO, DOPAMINE, BICARB, VERSED, EPI. TITRATED TO KEEP MAP ABOVE 65. REMAINS ON ALL GTT'S. 100 % FIO2. THIS RN CALLED PATIENT'S 4 TIMES TO GIVE UPDATES. AT 0230, AGREEABLE TO CHEMICAL CODE ONLY. ORDER OBTAINED FROM Sena CRAWFORD DNP. ORIGINATION SPECIALIST NOTIFIED THAT WOULD LIKE TO SEE PATIENT BEFORE AGREEING TO DNR STATUS. PATIENT NOT PROGRESSING TOWARDS POC GOALS.
--- NOTE | 2020-11-23 08:00 | NUR ---
ASSUMMED CARE OF THIS PATIENT FROM THE NIGHT NURSE, BHAVESH RN. REMAINS UNRESPONSIVE. EPI, LEVO, ABDIRAHMAN AND DOPAMINE CONTINUE FOR BP SUPPORT. AMIODARONE DRIP CONTINUES. VENOUS DOPPLER OF LOWER EXTERMITES COMPLETED. DR ROTHMAN INFORMED OF PRELIMARY FINDINGS OF BILATERAL DVT'S. WILL CONTINUE TO MONITOR
[2020-11-23 08:52] LABS: ALBUMIN 2.1 g/dL (3.4-5.0); DIRECT BILIRUBIN 1.7 mg/dL (<0.1-0.2); TOTAL BILIRUBIN 2.7 mg/dL (0.2-1.0); TOTAL PROTEIN 4.7 g/dL (6.4-8.2)
--- NOTE | 2020-11-23 10:00 | NUR ---
BEDSIDE ECHO DONE.
[2020-11-23 10:40] LABS: PROTIME 63.9 Seconds (10.5-12.1)
[2020-11-23 10:44] LABS: INR 6.4
--- NOTE | 2020-11-23 11:30 | 2DMMODE ---
[facility] [address] [place] [address] 2 D/M-MODE ECHOCARDIOGRAM Name: NICOLA CATHERINE Room #: 242-P ADM IN M.R.#: [id number] Admission: 11/22/20 Attend Phys: Keisha Guillermo Discharge: Date of : 41 Report #: [id number] THIS REPORT FOR: cc: Oleg Lux MD, Michael B. MD Couchonnal, Luis F. MD ~ APPROVED REPORT Study performed: 11/23/2020 09:29:06 EXAM: Comprehensive 2D, Doppler, and color-flow Echocardiogram Patient Location: Bedside Room #: 242 Status: on-call BSA: 2.33 HR: 71 bpm BP: 93/60 mmHg Rhythm: NSR Other Information Study Quality: Fair Technically limited study due to body habitus. Indications ICD: Congestive Heart Failure Dyspnea CAD S/P Cardiac Arrest 2D Dimensions IVSd: 8.34 (7-11mm) LVOT Diam: 21.00 (18-24mm) LVDd: 66.10 mm PWd: 8.03 (7-11mm) Ascending Ao: 32.51 (22-36mm) LVDs: 63.15 (25-40mm) Aortic Root: 32.59 mm LV Single Plane 4CH: 10.50 % LV Single Plane 2CH: 15.89 % Biplane EF: 14.0 % Volumes Left Atrial Volume (Systole) Single Plane 4CH: 71.87 mL Single Plane 2CH: 65.82 mL LA ESV Index: 32.00 mL/m2 [facility] [address] [place] [address] 2 D/M-MODE ECHOCARDIOGRAM Name: NICOLA CATHERINE OMARI Room #: 242-P [facility] IN M.R.#: [id number] Admission: 11/22/20 Attend Phys: Keisha Leon Discharge: Date of : 41 Report #: [id number] Aortic Valve AoV Peak Henrry.: 1.53 m/s AO Peak Gr.: 9.31 mmHg LVOT Max P.94 mmHg LVOT Max V: 0.86 m/s SARA Vmax: 1.99 cm2 Left Ventricle Left ventricle is severely dilated. There is severe global hypokinesis of the left ventricle. There is normal left ventricular wall thickness. Left ventricular systolic function is severely decreased. LVEF is 10-15%. This study is not technically sufficient to allow evaluation of the LV diastolic function. Right Ventricle The right ventricle is normal size. Right ventricle is hypokinetic. Device lead is present in the right ventricle. Atria The left atrium size is normal. The right atrium size is normal. Aortic Valve The aortic valve is normal in structure. Mild aortic regurgitation. There is no aortic valvular stenosis. Mitral Valve The mitral valve is normal in structure. Moderate to severe mitral regurgitation No evidence of mitral valve stenosis. Tricuspid Valve The tricuspid valve is normal in structure. Trace tricuspid regurgitation. Unable to assess PA pressure. Pulmonic Valve The pulmonary valve is normal in structure. Mild to moderate pulmonic regurgitation. Great Vessels The aortic root is normal in size. The ascending aorta is normal in size. IVC is dilated. Pt. is on a ventilator. Pericardium There is no pericardial effusion. <Conclusion> [facility] [address] [place] [address] 2 D/M-MODE ECHOCARDIOGRAM Name: NICOLA CATHERINE Room #: 242-[facility] IN ..#: [id number] Admission: 11/22/20 Attend Phys: Keisha Leon Discharge: Date of : 41 Report #: [id number] Left ventricle is severely dilated. There is severe global hypokinesis of the left ventricle. There is normal left ventricular wall thickness. Left ventricular systolic function is severely decreased. LVEF is 10-15%. The right ventricle is normal size. Right ventricle is hypokinetic. Mild aortic regurgitation. Moderate to severe mitral regurgitation The tricuspid valve is normal in structure. Trace tricuspid regurgitation. Unable to assess PA pressure. There is no pericardial effusion. <ELECTRONICALLY SIGNED> By: Trent Foote MD 11/23/20 1130 1130 1130 Trent Foote MD /INF
--- NOTE | 2020-11-23 12:20 | EKG ---
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 Nonspecific intraventricular conduction delay Electronically Signed On 11-23-2020 12:20:40 CDT by Trent Foote [email or web address] <ELECTRONICALLY SIGNED> By: Trent Foote MD 11/23/20 1220 1757 1757 MD SARAI Judd
--- NOTE | 2020-11-23 12:21 | EKG ---
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
[2020-11-24] VITALS (49 sets, daily range): BP systolic 83–123; BP diastolic 42–75
--- NOTE | 2020-11-24 02:04 | NUR ---
ASSUMED CARE OF PATIENT AT 1900. THIS RN CALLED PATIENTS AND UPDATED AT START OF SHIFT. PATIENT REMAINS ON ALL GTT'S, FIO2 TITRATED TO 60%. MORE RESPONSIVE THAN ON ADMISSION.
[2020-11-24 04:58] LABS: HEMATOCRIT 43.7 % (42.0-52.0); MCH 26.3 pg (26.0-34.0); MCHC 32.1 g/dL (28.0-37.0); MCV 81.9 fL (80.0-100.0); RBC 5.34 mil/uL (4.50-6.00); RDW 17.1 % (10.5-14.5); WBC 20.1 thou/uL (4.0-11.0)
[2020-11-24 05:22] LABS: ALBUMIN 2.2 g/dL (3.4-5.0); CALCIUM 8.7 mg/dL (8.5-10.1); POTASSIUM 5.6 mmol/L (3.5-5.1); TOTAL PROTEIN 5.2 g/dL (6.4-8.2)
[2020-11-24 05:23] LABS: TOTAL BILIRUBIN 4.5 mg/dL (0.2-1.0)
[2020-11-24 05:24] LABS: CREATININE 4.3 mg/dL (0.7-1.3)
[2020-11-24 05:36] LABS: GLYCOHEMOGLOBIN (HGB A1C) 6.9 % (4.8-5.6)
[2020-11-24 11:01] LABS: APTT 48.7 Seconds (24.5-32.8)
[2020-11-24 11:04] LABS: INR 6.63
--- NOTE | 2020-11-24 12:48 | HC ---
[facility] [place] [address] CONSULTATION Name: NICOLA CATHERINE Room #: 242-P [facility] IN M.R.#: [id number] Admission: 11/22/20 Attend Phys: Keisha Guillermo Discharge: Date of : 41 Report #: [id number] THIS REPORT FOR: cc: Oleg Lux MD,Nelly Haywood MD, DO ~ NEUROLOGY CONSULTATION HISTORY OF PRESENT ILLNESS: A 75-year-old male who came to the emergency room because he was feeling short of air. This occurred approximately 45 minutes prior to arrival. While he was in the Emergency Department, he became unresponsive. Apparently, the patient has a history of cardiac stent and has a defibrillator. The patient was successfully resuscitated and had been on Eliquis. The sedation was stopped at 6:00 a.m. this morning. While in the hospital, the patient has had an echocardiogram that demonstrates severe left ventricular dilation and global hypokinesis. His ejection fraction is 10-15%. He has mild aortic regurgitation, moderate to severe mitral regurgitation. PAST MEDICAL HISTORY: Coronary artery disease, severe ischemic cardiomyopathy, history of ventricular tachycardia, chronic kidney disease, diabetes mellitus. PAST SURGICAL HISTORY: Laparoscopic cholecystectomy, cardiac stents, ventricular defibrillator placement, left knee arthroscopy. In hospital, the patient is on 4 pressors. He is on dopamine, epinephrine, norepinephrine and phenylephrine. He is also on Zosyn, pantoprazole, amiodarone. ALLERGIES: None. VITAL SIGNS: Temperature 38.2, pulse rate 84, respiratory rate 28, blood pressure 118/68, bedside pulse oximetry 98% on the ventilator. LABORATORY DATA: Hematology: White blood cell count 31.4, hemoglobin 12.2, hematocrit 38.6, MCV 84.1, platelet count 284,000. Coagulation: INR 6.4. Chemistry: Sodium 133, potassium 5, chloride 99, carbon dioxide 25, BUN 24, creatinine 3, GFR 25, glucose 232. Hemoglobin A1c pending. Calcium 7.4, magnesium 2, total bilirubin 2.7, direct bilirubin 1.7, AST 3751, ALT 2118, alkaline phosphatase 138, total protein 4.7, albumin 2.1. TSH 0.146. NEUROLOGIC EXAMINATION: It is difficult to tell if the pupils are reactive. Corneal reflexes are present bilaterally. Oculocephalic reflex is present. The patient has facial grimacing with tactile stimulation. He over breathes the [address] [address] CONSULTATION Name: NICOLA CATHERINE Room #: 242-P [facility] IN .R.#: [id number] Admission: 11/22/20 Attend Phys: Keisha Guillermo Discharge: Date of : 41 Report #: [id number] ventilator. He had no spontaneous movements of the extremities. Plantar responses are flexor bilaterally. Coordination and gait cannot be tested. 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 It will take time to know what this gentleman's ultimate neurological functioning will be, but he does have brainstem reflexes present. At this point, supportive care should be continued. I would not give this gentleman any sedation unless it is absolutely necessary that will make it difficult to assess his neurological status. I do understand from the nurse, the patient is now DNR. I thank you for your kind referral of this patient and we will continue to follow him with you. <ELECTRONICALLY SIGNED> By: Nelly Brandt DO 11/24/20 1248 1248 Nelly Brandt DO /nt
[2020-11-24 14:37] LABS: BE(vivo) -5.2 mmol/L (-2 to +3); PCO2 33.5 mmHg (35.0-45.0); PO2 120.5 mmHg (80.0-100.0); pH 7.372 (7.360-7.450); sO2 98.3 % (92.0-98.0)
[2020-11-25] VITALS (76 sets, daily range): BP systolic 71–130; BP diastolic 42–84
[2020-11-25 05:41] LABS: HEMATOCRIT 44.7 % (42.0-52.0); HEMOGLOBIN 14.2 gm/dL (14.0-18.0); MCH 25.9 pg (26.0-34.0); MCHC 31.8 g/dL (28.0-37.0); MCV 81.4 fL (80.0-100.0); RBC 5.49 mil/uL (4.50-6.00); RDW 17.2 % (10.5-14.5); WBC 14.1 thou/uL (4.0-11.0)
[2020-11-25 05:57] LABS: PROTIME 29.3 Seconds (10.5-12.1)
[2020-11-25 05:59] LABS: INR 2.82
[2020-11-25 06:07] LABS: CALCIUM 8.7 mg/dL (8.5-10.1); PHOSPHORUS 5.8 mg/dL (2.6-4.7)
[2020-11-25 08:53] LABS: BE(vivo) -5.2 mmol/L (-2 to +3); HCO3 17.6 mmol/L (22.0-26.0); PCO2 28.2 mmHg (35.0-45.0); PO2 149.7 mmHg (80.0-100.0); pH 7.414 (7.360-7.450)
--- NOTE | 2020-11-25 10:58 | NUR ---
Pt admitted to ICU s/p cardiac arrest x2, shock liver, FUNMI. DNR status. Noted poor prognosis. Follow plan of care
--- NOTE | 2020-11-25 11:07 | EKG ---
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 : 1945 Requested By: Rc Rivero Order Number: [id number] MD: Ambrocio Diaz Measurements Intervals [place] Rate: 109 P: 0 NM: 96 QRS: 79 QRSD: 169 T: 264 QT: 414 QTc: 558 Interpretive Statements Atrial-paced complexes Nonspecific intraventricular conduction delay Repol abnrm, severe global ischemia (LM/MVD) Compared to ECG 11/14/2020 07:19:27 Early repolarization now present Possible ischemia now present Sinus rhythm no longer present Electronically Signed On 11-25-2020 11:07:37 CDT by Ambrocio Diaz [email or web address] <ELECTRONICALLY SIGNED> By: Ambrocio Diaz MD, [facility] 11/25/20 1107 1757 1757 Ambrocio Diaz MD, [facility] /EPI
--- NOTE | 2020-11-25 11:15 | NUR ---
Chart review. Recently here and dc on 11/19/20. Unable to visit r/t on vent post arrest. Unable to visit with family r/t she speaking with neurology. Will cont following as needed for dc needs.
--- NOTE | 2020-11-25 11:54 | NUR ---
WOUND CONSULT; THE RN TODAY STATES THERE ARE "NO WOUNDS". THERE IS NO NEED TO FOLLOW. RECONSULT IF NEEDED. DISCUSSED WITH RN.
--- NOTE | 2020-11-25 14:46 | NUR ---
PATIENT'S , ENEDELIA, CALLED FROM [phone] AND SHE WAS UPDATED AND EDUCATED ON THE PATIENT'S CONDITION AND PLAN OF CARE.
[2020-11-26 00:06] VITALS: BP 108/68
[2020-11-26 00:22] VITALS: BP 101/55
[2020-11-26 00:58] VITALS: BP 106/65
--- NOTE | 2020-11-26 01:19 | NUR ---
ASSUMED CARE OF PATIENT AT 1900. FOLLOWS COMMANDS, MAKING EXCELENT URINE OUTPUT. DOPAMINE TITRATED DOWN. WILL ATTEMPT LEVO. THIS RN CALLED AT THE BEGINNING OF THE SHIFT TO UPDATE. WILL CALL IN AM IF NEEDED. VERBALIZED UNDERSTANDING OF PATIENT PROGRESS.
[2020-11-26 01:28] VITALS: BP 116/68
[2020-11-26 01:58] VITALS: BP 113/63
[2020-11-26 03:22] VITALS: BP 108/62
--- NOTE | 2020-11-26 04:20 | NUR ---
AT 0340 PATIENT HEART RATE DROPPED, O2 SAT UNREADABLE. THIS RN USED A DOPPLER TO FIND PULSE. NONE HEARD. ER PHYSICIAN TO BEDSIDE, PRONOUNCED TIME OF 0356. NOTIFIED. PACKET FILLED OUT.
--- NOTE | 2020-11-26 09:14 | HC ---
[facility] [place] [address] [place] [address] CONSULTATION Name: NICOLA CATHERINE Room #: 242-P [facility] IN M.R.#: [id number] Admission: 11/22/20 Attend Phys: Rc Rivero MD Discharge: 11/26/20 Date of : 41 Report #: [id number] THIS REPORT FOR: cc: Oleg Lux MD, Michael B. MD Al-Kamaljit,Johnny Rajput MD ~ This is obtained from the medical chart. The patient is not able to provide us with any history. REASON FOR CONSULTATION: Acute kidney injury. REASON FOR THE PRESENTATION: Shortness of breath. HISTORY OF PRESENT ILLNESS: Apparently, the patient is intubated. He is status post cardiac arrest. He is not able to provide us with any history. He had cholecystectomy few days ago. Currently, the patient has several events of cardiac arrest while in the Emergency Room. Multiple resuscitative measures were initiated. On arrival to the Emergency Room, the patient's creatinine was significantly elevated at 3. His potassium was 6.7. The patient was in the hospital and was discharged from the hospital on 11/19/2020 with a creatinine value of 1.6. He had an acute kidney injury related to his surgery at that time. This was thought to be due to dehydration. He has extensive cardiac history and his most recent echo was consistent with very bad ejection fraction with severe systolic and diastolic dysfunction with an ejection fraction of around 20%. I was consulted to manage his acute kidney injury. PAST MEDICAL HISTORY: 1. Cardiomyopathy with an ejection fraction of around 15%. 2. Coronary artery disease. 3. History of DVT. 4. V-tach. 5. Diabetes mellitus. 6. Hypertension. 7. Hyperlipidemia. PAST SURGICAL HISTORY: 1. ICD placement. 2. Left knee arthroscopy. SOCIAL HISTORY: Lives with his family. FAMILY HISTORY: Unable to obtain given his current mental status and intubation status. REVIEW OF SYSTEMS: Unobtainable given the patient's current mental status. [facility] [address] [place] [address] CONSULTATION Name: NICOLA CATHERINE Room #: 242-P [facility].#: [id number] Admission: 11/22/20 Attend Phys: Rc Rivero MD Discharge: 11/26/20 Date of : 41 Report #: [id number] PHYSICAL EXAMINATION: VITAL SIGNS: Temperature is 34.8, blood pressure is 110/65. GENERAL: Currently, maintained on multiple pressors. Intubated. CHEST: Decreased air entry bilaterally. CARDIOVASCULAR: No rub. ABDOMEN: Soft. LOWER EXTREMITIES: +2 edema. LABORATORY VALUES: White blood cell count is 31.4. Sodium is 133, potassium is 5, BUN is 44, creatinine is 3.0. ASSESSMENT, IMPRESSION, PLAN: 1. Acute kidney injury. 2. Status post cardiac arrest. 3. Acute respiratory failure. 4. Hyperkalemia. 5. Metabolic acidosis. 6. Leukocytosis. 7. Supratherapeutic INR. 8. Multiple cardiac arrests events in the Emergency Room. It is unlikely that the patient will survive this situation. At this point, he is maintained on aggressive measures for his hemodynamic support. Potassium has now normalized. Creatinine has stabilized. Acidosis had improved. 9. Continue current measures and discussed care plans with the family. Avoid nephrotoxins. 10. Continue pressors. 11. Continue bicarbonate drip. We will continue to follow. <ELECTRONICALLY SIGNED> By: Johnny Ruiz MD 11/26/20 0914 0543 0623 Johnny Ruiz MD /nt
--- NOTE | 2020-12-02 14:24 | NUR ---
Frediskirstychula, called wanted to speak with hospitalist about light adjuster. Cm passed on information to hospitalist.
--- NOTE | 2020-12-04 12:23 | EEG ---
[facility] [place] [address] [place] [address] ELECTROENCEPHALOGRAM Name: NICOLA CATHERINE Room #: 242-P [facility] IN M.R.#: [id number] Admission: 11/22/20 Attend Phys: Rc Rivero MD Discharge: 11/26/20 Date of : 41 Report #: [id number] THIS REPORT FOR: //name// DATE OF SERVICE: 11/25/2020 The patient's EEG was done by placing the electrode by standard 10-20 system of electrode placement. Both referential and sequential montages were used for recording. Background activity in this patient's EEG is difficult to determine as its low voltage and a lot of artifact is present. It appears to be about 5 Hz and less than 5 microvolt. Photic stimulation is unremarkable. No active epileptiform activity was noticed. IMPRESSION: This is an abnormal EEG because it is disorganized and poorly formed. That finding can be consistent with encephalopathy, but clinical correlation is recommended as the finding is nonspecific. Thank you very much for this referral. <ELECTRONICALLY SIGNED> By: Goyo Alfonso MD 12/04/20 1223 0946 1045 Goyo Alfonso MD /nt
== END 2020-11-26 03:56 | DRG 208 ==
LOC: ER 17:25 → ICU 19:23 → EROBS 19:23 → ICU 23:06
PROVIDERS: Emergency Medicine; Hospitalist; Internal Medicine Pulmonary Disease; Nurse Practitioner Family; ADMIT Hospitalist; ATTEND Hospitalist
DX: J96.01 Acute respiratory failure with hypoxia (principal); K72.00 Acute and subacute hepatic failure without coma; J18.9 Pneumonia, unspecified organism; R65.11 Systemic inflammatory response syndrome (SIRS) of non-infectious origin with acute organ dysfunction; N17.9 Acute kidney failure, unspecified; G93.1 Anoxic brain damage, not elsewhere classified; I82.4Z3 Acute embolism and thrombosis of unspecified deep veins of distal lower extremity, bilateral; I13.0 Hypertensive heart and chronic kidney disease with heart failure and stage 1 through stage 4 chronic kidney disease, or unspecified chronic kidney disease; E87.2 Acidosis; I46.9 Cardiac arrest, cause unspecified; R57.8 Other shock; E11.22 Type 2 diabetes mellitus with diabetic chronic kidney disease; I25.10 Atherosclerotic heart disease of native coronary artery without angina pectoris; E78.00 Pure hypercholesterolemia, unspecified; I50.9 Heart failure, unspecified; E87.5 Hyperkalemia; E78.5 Hyperlipidemia, unspecified; D72.829 Elevated white blood cell count, unspecified; Z66 Do not resuscitate; K21.9 Gastro-esophageal reflux disease without esophagitis; N18.30 Chronic kidney disease, stage 3 unspecified; I95.9 Hypotension, unspecified; E11.65 Type 2 diabetes mellitus with hyperglycemia; I25.5 Ischemic cardiomyopathy; I08.1 Rheumatic disorders of both mitral and tricuspid valves; Z20.822 Contact with and (suspected) exposure to COVID-19; Z86.718 Personal history of other venous thrombosis and embolism; Z90.49 Acquired absence of other specified parts of digestive tract; Z95.5 Presence of coronary angioplasty implant and graft; Z79.82 Long term (current) use of aspirin; Z79.899 Other long term (current) drug therapy; Z95.810 Presence of automatic (implantable) cardiac defibrillator
CPT/HCPCS: 10078